=== PATIENT | female | born 1960 | race Caucasian/White ===

== ENCOUNTER 2016-10-04 12:55 | Emergency (ER) | payer OTHER ==
[~2016-10-04] VITALS: Ht 160 cm; Wt 77.2 kg
[~2016-10-04 12:55] MED LIST: ALPRAZOLAM0.5 MG PO; BYSTOLIC5 MG PO; Bystolic PO; COMPAZINE10 MG PO; Vicodin,Norco 5/325 PO; XELODA150 MG
[2016-10-04] MEDS ORDERED: PRINIVIL10 MG PO ×2 (13:12→14:58)
[2016-10-04] MEDS ORDERED: TRAMADOL HCL50 MG PO (14:47)
[2016-10-04] MEDS ORDERED: MOBIC7.5 MG PO (14:47)
[2016-10-04 15:02] VITALS: BP 162/83
== END 2016-10-04 15:04 | disposition home or self-care (01) ==
LOC: EME 12:55
DX: M17.11 Unilateral primary osteoarthritis, right knee (principal); Z88.0 Allergy status to penicillin; Z88.6 Allergy status to analgesic agent
CPT/HCPCS: 73564; 99281; 99283